=== PATIENT | female | born 1965 | race Caucasian/White ===

== ENCOUNTER 2016-03-06 05:24 | Day surgery (SDC) | payer BC ==
[2016-03-04 12:59] LABS: HEMATOCRIT 38.4 % (36.0-47.0); HEMOGLOBIN 13.1 g/dL (12.0-15.5); HGB HCT DIFFERENCE 0.9; MEAN CORPUSCULAR HEMOGLOBIN 30.1 pg (27.0-33.4); MEAN CORPUSCULAR HGB CONC 34.2 g/dL (32.0-36.0); MEAN CORPUSCULAR VOLUME 88 fl (80-97); RED BLOOD COUNT 4.36 10^6/uL (3.72-5.28); RED CELL DISTRIBUTION WIDTH 12.9 % (11.5-14.0); WHITE BLOOD COUNT 4.2 10^3/uL (4.0-10.5)
[2016-03-04 13:12] LABS: APPEARANCE,URINE CLEAR; BILIRUBIN,URINE NEGATIVE (NEGATIVE); GLUCOSE, URINE NEGATIVE (NEGATIVE); KETONES,URINE NEGATIVE (NEGATIVE); LEUKOCYTE ESTERASE,URINE NEGATIVE (NEGATIVE); NITRITE,URINE NEGATIVE (NEGATIVE); PROTEIN,URINE NEGATIVE (NEGATIVE); URINE SPECIFIC GRAVITY 1.013; UROBILINOGEN,URINE NEGATIVE mg/dL (<2.0)
[2016-03-04 13:13] LABS: BACTERIA,URINE TRACE /HPF
--- NOTE | 2016-03-04 13:17 | EKG REPORT ---
SEVERITY:- NORMAL ECG - SINUS RHYTHM : Confirmed by: Nick Akers 04-Mar-2016 13:16:17
[2016-03-04 13:23] LABS: ANION GAP 11 (5-19); BLOOD UREA NITROGEN 14 mg/dL (7-20); CARBON DIOXIDE 26 mmol/L (22-30); CHLORIDE 103 mmol/L (98-107); CREATININE RESULT 0.69 mg/dL (0.52-1.25); GLUCOSE 83 mg/dL (75-110); POTASSIUM 4.3 mmol/L (3.6-5.0); SODIUM 140.1 mmol/L (137-145)
[~2016-03-06 05:24] MED LIST: CEFAZOLIN SODIUM 1 GM in DEXTROSE 5%-WATER 50 ML IV PRN; LIDOCAINE 0.5% INJ-PF (5 MG/ML) 50 ML SDV SUBCUT PRN; RINGERS SOLUTION,LACTATED 1,000 ML IV PRN
[2016-03-06] MEDS ORDERED: CEFAZOLIN INJ 1 GM VIAL ONE (05:34)
[2016-03-06] MEDS ORDERED: ONDANSETRON HCL INJ/PF 4 MG/2 ML SDV ONE (07:11)
[2016-03-06] MEDS ORDERED: HYDROMORPHONE HCL INJ/PF 2 MG/ML AMPULE ONE (07:11)
[2016-03-06] MEDS ORDERED: PROPOFOL INJ 200 MG/20 ML VIAL IV ONE (07:11)
[2016-03-06] MEDS ORDERED: KETOROLAC TROMETHAMINE 60 MG/2 ML SDV ONE (07:11)
[2016-03-06] MEDS ORDERED: MIDAZOLAM 2 MG/2 ML INJ ONE (07:11)
[2016-03-06] MEDS ORDERED: LIDOCAINE 1% INJ-PF (10 MG/ML) 30 ML SDV ONE (07:29)
[2016-03-06] MEDS ORDERED: MORPHINE SULFATE 10 MG/ML INJ IV PRN (07:50)
[2016-03-06] MEDS ORDERED: MEPERIDINE HCL/PF INJ 25 MG/1 ML DISP.SYRIN IV PRN (07:50)
[2016-03-06] MEDS ORDERED: DIPHENHYDRAMINE HCL 50 MG/ML VIAL IV PRN (07:50)
[2016-03-06] MEDS ORDERED: PROMETHAZINE HCL INJ 25 MG/1 ML VIAL IV PRN ×2 (07:50)
[2016-03-06] MEDS ORDERED: OXYCODONE-ACETAMINOPHEN 5-325 MG TABLET PO PRN ×4 (07:50→08:12)
[2016-03-06] MEDS ORDERED: FENTANYL CITRATE INJ/PF 100 MCG/2 ML AMPUL IV PRN ×3 (07:50)
[2016-03-06] MEDS ORDERED: DIPHENHYDRAMINE HCL 50 MG/ML VIAL ONE (08:29)
--- NOTE | 2016-03-06 09:20 | OPERATIVE REPORT E ---
Operative Report NAME: NANNETTE LA : 1965 AGE: 50Y DATE OF SURGERY: 03/06/2016 ROOM: PREOPERATIVE DIAGNOSIS: Postmenopausal bleeding on Tamoxifen. POSTOPERATIVE DIAGNOSES: 1. Postmenopausal bleeding on Tamoxifen. 2. Endometrial polyp. PROCEDURES: Hysteroscopic polypectomy and dilatation and curettage. SURGEON: SUE CLEMENS M.D. COMPLICATIONS: None. ANESTHESIA: LMAC and paracervical block. FINDINGS: Fundal endometrial polyp. Abundant endometrial lining. No adnexal masses appreciated. Bladder remained undrained. Cervix was normal. DESCRIPTION OF PROCEDURE: Patient had spotting while she had been on Tamoxifen for breast cancer. Outpatient biopsy was benign. The usual risks of bleeding, infection, anesthesia, damage to organs and tissues were discussed with the patient who understood. . The usual risks of bleeding, infection, anesthesia, damage to organs and tissues were discussed with the patient who understood and agreed with the above procedure. Patient taken to the operating room and placed in modified lithotomy position. Adequate anesthesia was ascertained. Prepped and draped in the usual manner for a hysteroscopy. After adequate anesthesia was performed, a paracervical block was placed. Tenaculum grasped the anterior lip of the cervix and the cervix readily admitted an operative hysteroscope. Survey ensued. A polyp was encountered and specimen was removed in toto with MyoSure device. Segmental resection of the lesion was performed with MyoSure device throughout. Curettage followed productive of a small amount of tissue at this point. At the completion of the procedure all sponge and needle counts were correct. Patient was taken to the recovery room in stable condition. DICTATING PHYSICIAN: SUE CLEMENS M.D. [id number] PHY#: [id number] ID: [id number] JOB#: [id number] ACCT: [id number] cc:SUE CLEMENS M.D. > [facility]ITALVinny
[2016-03-06] MEDS ORDERED: IBUPROFEN 800 MG TABLET PO SCH (10:00)
[2016-03-06 10:15] VITALS: BP 123/80
== END 2016-03-06 10:20 | disposition home or self-care (01) ==
LOC: OROUT 05:24
PROVIDERS: ATTEND Specialist
PROC: 0UB98ZX Excision of Uterus, Via Natural or Artificial Opening Endoscopic, Diagnostic (ICD-10-PCS; 2016-03-06)
PROC: 0UDB8ZX Extraction of Endometrium, Via Natural or Artificial Opening Endoscopic, Diagnostic (ICD-10-PCS; principal; 2016-03-06 07:15)
DX: N95.0 Postmenopausal bleeding (principal); N84.0 Polyp of corpus uteri; Z79.810 Long term (current) use of selective estrogen receptor modulators (SERMs); Z79.899 Other long term (current) drug therapy
CPT/HCPCS: 58558; 93005; 86900; 86901; 36415; 86850; 85027; 81025; 80048; 81001; 88305 ×2; 71020; 93010; J2250; J0690; J1200; J1885; J3490; J1170; J2405; J2704; 952

== ENCOUNTER → 2016-04-11 | Outpatient (CLI) | payer BC | LOC: RAD 08:18 | PROVIDERS: ATTEND Internal Medicine Medical Oncology | DX: C50.919 Malignant neoplasm of unspecified site of unspecified female breast (principal); M89.8X9 Other specified disorders of bone, unspecified site | CPT/HCPCS: 78306; A9503; Q9969 ==

== ENCOUNTER → 2017-03-31 | Outpatient (CLI) | payer BC ==
--- NOTE | 2017-03-31 14:12 | RADIOLOGY REPORT (SQ) ---
EXAM DESCRIPTION: CT ABD/PELVIS WITH IV ORAL COMPLETED DATE/TIME: 03/31/2017 12:42 pm REASON FOR STUDY: LLQ PAIN COMPARISON: CT of the abdomen 07/05/2015 TECHNIQUE: CT scan of the abdomen and pelvis performed using helical scanning technique with dynamic intravenous contrast injection. Patient drank oral contrast. Images reviewed with lung, soft tissue , and bone windows. Reconstructed coronal and sagittal MPR images reviewed. Delayed images for evalua tion of the urinary system also acquired. All images stored on PACS. All CT scanners at this facility use dose modulation, iterative reconstruction, and/or weight based d osing when appropriate to reduce radiation dose to as low as reasonably achievable (ALARA). [facility]: Dose Right [facility]: CareDose [facility]: Dose Right [facility]: Teradose 4D [facility]: NanoAntibiotics CONTRAST TYPE AND DOSE: contrast/concentration: Isovue 370.00 mg/ml; Total Contrast Delivered: 88.0 ml; Total Saline Delivered: 52.0 ml RENAL FUNCTION: Creatinine 0.8 RADIATION DOSE: CT Rad equipment meets quality standard of care and radiation dose reduction techniq ues were employed. CTDIvol: 12.9 - 17.6 mGy. DLP: 1646 mGy-cm.. LIMITATIONS: None. FINDINGS: On axial images 61 through 65, coronal image 32 through 35, and sagittal image 74-78, ther e is a short segment of distal descending/proximal sigmoid colon wall thickening and luminal narrowin g with adjacent inflammatory change in the pericolic fat. This most likely represents a short segmen t of colitis from diverticulitis. Patient drank oral contrast. Remainder of the gastrointestinal tract is otherwise unremarkable. Sca ttered colonic diverticular seen elsewhere without inflammatory change. No intra-abdominal abscess o r free intraperitoneal air or fluid. Appendix unremarkable. LOWER CHEST: Post right mastectomy and breast implant. Lung bases are clear. LIVER: Normal size. No masses. No dilated ducts. SPLEEN: Normal size. No focal lesions. PANCREAS: No masses. No significant calcifications. No adjacent inflammation or peripancreatic fluid collections. Pancreatic duct not dilated. GALLBLADDER: No identified stones by CT criteria. No inflammatory changes to suggest cholecystitis. ADRENAL GLANDS: Right adrenal gland unremarkable. 1.5 cm fatty left adrenal adenoma RIGHT KIDNEY AND URETER: No solid masses. No significant calcifications. No hydronephrosis or hyd roureter. LEFT KIDNEY AND URETER: No solid masses. No significant calcifications. No hydronephrosis or hydr oureter. AORTA AND VESSELS: No aneurysm. No dissection. Renal arteries, SMA, celiac without stenosis. RETROPERITONEUM: No retroperitoneal adenopathy, hemorrhage or masses. BOWEL AND PERITONEAL CAVITY: A short segment of distal descending/ proximal sigmoid colon wall thicke tasia luminal narrowing and adjacent inflammatory change in the pericolic fat, likely due to diverticu litis. No abscess. No free intraperitoneal air or fluid. APPENDIX: Normal. PELVIS: No mass. No free fluid. Normal bladder. Normal size female pelvic organs. ABDOMINAL WALL: Tiny fat containing umbilical hernia BONES: Degenerative changes lower lumbar spine and SI joints bilaterally. No gross lytic or scleroti c lesions over the visualized bony structures. OTHER: No other significant finding. IMPRESSION: Short segment of distal descending/ proximal sigmoid colon diverticulitis without absces s TECHNICAL DOCUMENTATION: JOB ID: [id number] Quality ID # [id number]: Final reports with documentation of one or more dose reduction techniques (e.g., Au tomated exposure control, adjustment of the mA and/or kV according to patient size, use of iterative reconstruction technique) 2010 [employer]- All Rights Reserved
== END ==
LOC: RAD 09:35
PROVIDERS: ATTEND Internal Medicine Gastroenterology
DX: K57.30 Diverticulosis of large intestine without perforation or abscess without bleeding (principal); R10.32 Left lower quadrant pain
CPT/HCPCS: 74177; 82565

== ENCOUNTER → 2018-01-29 | Outpatient (CLI) | payer BC ==
--- NOTE | 2018-01-29 11:07 | RADIOLOGY REPORT (SQ) ---
EXAM DESCRIPTION: MRI RT LOWER JOINT WITHOUT COMPLETED DATE/TIME: 01/29/2018 9:43 am REASON FOR STUDY: RIGHT KNEE PAIN (M25.561) M25.561 PAIN IN RIGHT KNEE COMPARISON: None. TECHNIQUE: Rightknee images acquired and stored on PACS. Multiplanar images include fat sensitive s equences as T1, water sensitive sequences as FST2 or STIR, cartilage sensitive sequences as FSPD, and gradient echo sequences. LIMITATIONS: Mild metallic artifact from hardware post ACL repair FINDINGS: JOINT AND BURSAE: Small suprapatellar knee joint effusion with 4 x 2 cm Vale's cyst. 1.5 cm calcified/ossified loose body in the anterior joint just deep to Hoffa's fat pad, best shown on s agittal image 8 and axial image 15. BONE CORTEX AND MARROW: No alteration of signal to suggest marrow replacement. No worrisome bone lesi ons. No occult fracture. ACL: Intact ACL repair on sagittal images 9-12 PCL: Intact. MCL: Intact. No periligamentous edema or fluid. LCL: Intact. No periligamentous edema or fluid. MEDIAL MENISCUS: No tears. No abnormal signal. LATERAL MENISCUS: No tears. No abnormal signal. MEDIAL COMPARTMENT: Moderate chondromalacia. No bone bruises or reactive marrow edema. No osteophytes . LATERAL COMPARTMENT: Mild chondromalacia. No bone bruises or reactive marrow edema. No osteophytes. PATELLA: High-grade medial and lateral patellar facet chondromalacia. No subchondral cysts. Medial a nd lateral retinacula intact. EXTENSOR MECHANISM: Intact. Quadriceps tendon is normal. Metallic artifact from patellar tendon harv est for ACL graft. Patellar tendon otherwise intact. SOFT TISSUES: Adjacent muscles and subcutaneous tissues normal. Normal flow void in popliteal artery and vein. OTHER: No other significant finding. IMPRESSION: Intact ACL repair Tricompartment chondromalacia Joint effusion with 1.5 cm loose body anterior joint space TECHNICAL DOCUMENTATION: JOB ID: [id number]- All Rights Reserved Reading location - IP/workstation name: [facility]
== END ==
LOC: RAD 08:43
PROVIDERS: ATTEND Orthopaedic Surgery
DX: M25.561 Pain in right knee (principal)

== ENCOUNTER → 2018-04-05 | Outpatient (CLI) | payer BC ==
--- NOTE | 2018-04-05 15:35 | RADIOLOGY REPORT (SQ) ---
EXAM DESCRIPTION: CT ABDOMEN IV CONTRAST ONLY COMPLETED DATE/TIME: 04/05/2018 3:06 pm REASON FOR STUDY: ABD PAIN R10.9 UNSPECIFIED ABDOMINAL PAIN COMPARISON: 07/05/2015 TECHNIQUE: CT scan of the abdomen performed with intravenous and without oral contrast using helical scanning technique with dynamic intravenous contrast injection. Images reviewed with lung, soft tiss ue, and bone windows. Reconstructed coronal and sagittal MPR images reviewed. Delayed images for eval uation of the urinary system also acquired and evaluated. All images stored on PACS. All CT scanners at this facility use dose modulation, iterative reconstruc tion, and/or weight based dosing when appropriate to reduce radiation dose to as low as reasonably ac hievable (ALARA). [facility]: Dose Right [facility]: CareDose [facility]: Dose Right [facility]: Teradose 4D [facility]: [employer] CONTRAST TYPE AND DOSE: contrast/concentration: Isovue 350.00 mg/ml; Total Contrast Delivered: 95.0 ml; Total Saline Delivered: 71.0 ml RENAL FUNCTION: Creatinine 0.9 RADIATION DOSE: CT Rad equipment meets quality standard of care and radiation dose reduction techniq ues were employed. CTDIvol: 10.6 - 12.5 mGy. DLP: 770 mGy-cm. . LIMITATIONS: None. FINDINGS: LOWER CHEST: Right mastectomy reconstruction. No acute findings. No nodules or infiltrate s. LIVER: Normal size. No masses. No dilated ducts. SPLEEN: Normal size. No focal lesions. PANCREAS: No masses. No significant calcifications. No adjacent inflammation or peripancreatic fluid collections. Pancreatic duct not dilated. GALLBLADDER: No identified stones by CT criteria. No inflammatory changes to suggest cholecystitis. ADRENAL GLANDS: No significant masses or asymmetry. RIGHT KIDNEY AND URETER: No solid masses. No significant calcifications. No hydronephrosis or hyd roureter. LEFT KIDNEY AND URETER: No solid masses. No significant calcifications. No hydronephrosis or hydr oureter. AORTA AND VESSELS: No aneurysm. No dissection. Renal arteries, SMA, celiac without stenosis. RETROPERITONEUM: No retroperitoneal adenopathy, hemorrhage or masses. BOWEL AND PERITONEAL CAVITY: Diffuse diverticulosis. No masses or inflammatory changes. No free flui d or peritoneal masses. APPENDIX: Normal. ABDOMINAL WALL: Small fat containing umbilical hernia. BONES: No significant or acute findings. OTHER: No other significant finding. IMPRESSION: No acute findings. No explanation for abdominal pain. TECHNICAL DOCUMENTATION: JOB ID: [id number] Quality ID # [id number]: Final reports with documentation of one or more dose reduction techniques (e.g., Au tomated exposure control, adjustment of the mA and/or kV according to patient size, use of iterative reconstruction technique) 2010 [employer]- All Rights Reserved Reading location - IP/workstation name: [email or web address]INT[facility]uarte
== END ==
LOC: RAD 14:30
PROVIDERS: ATTEND Internal Medicine Medical Oncology
DX: K57.90 Diverticulosis of intestine, part unspecified, without perforation or abscess without bleeding (principal); R10.9 Unspecified abdominal pain
CPT/HCPCS: 74160; 82565